=== PATIENT | female | born 1995 | race Two or more races ===

== ENCOUNTER 2020-10-14 14:01 | Emergency (ER) | payer MEDICAID, OTHER ==
[~2020-10-14] VITALS: Ht 154.9 cm; Wt 74.8 kg
[2020-10-14 14:09] VITALS: BP 129/85
[2020-10-14] MEDS ORDERED: IBUPROFEN 600 MG TAB PO ONE (16:30)
[2020-10-14] MEDS ORDERED: METHOCARBAMOL 500 MG TAB PO ONE (16:30)
== END 2020-10-14 17:23 | disposition home or self-care (01) ==
LOC: ER 14:05
DX: R07.81 Pleurodynia (principal); V49.9XXA Car occupant (driver) (passenger) injured in unspecified traffic accident, initial encounter; Y93.89 Activity, other specified; Y92.89 Other specified places as the place of occurrence of the external cause; Y99.8 Other external cause status
CPT/HCPCS: 71101